=== PATIENT | female | born 1960 | race Caucasian/White ===

== ENCOUNTER 2017-01-25 22:47 | Emergency (ER) | payer BC ==
[2017-01-25] MEDS ORDERED: SODIUM CHLORIDE 0.9% 1,000 ML IV STA (23:28)
--- NOTE | 2017-01-25 23:37 | ED ---
Abdominal Pain HPI - General Chief Complaint: Abdominal Pain Stated Complaint: poss kidney stone Time Seen by Provider: 01/25/17 23:19 Source: patient, RN notes reviewed Mode of arrival: ambulatory Limitations: no limitations - History of Present Illness Initial Comments: 56-year-old female presents emergency Department chief complaint of left flank pain. Patient states that she didn't sudden onset of pain a few hours prior arrival. Patient states it did radiate to her lower abdomen. She has no history kidney stones which she states that she has had some family members describe the pain very similar. He states his pain has subsided some still an achy pain in her left flank. Patient denies any dysuria, hematuria, urinary frequency, diarrhea constipation. She's had no prior abdominal surgeries. She does admit to having some issues with her back in which she has been working through with her primary care physician and she is scheduled for an MRI. Patient denies fever, chills, chest pain or shortness of breath. - Related Data Home Medications Medication Instructions Recorded Confirmed Cyclobenzaprine [Flexeril] 5 mg PO TID PRN 01/25/17 01/25/17 Naproxen 500 mg PO BID 01/25/17 01/25/17 methylPREDNISolone Dose Pack See Taper PO DAILY 01/25/17 01/25/17 [Medrol Dose Pack] Previous Rx's Medication Instructions Recorded Hydrocodone/Acetaminophen [Mammoth 1 tab PO Q6HR PRN #20 tab 01/26/17 5-325] Ondansetron Odt [Zofran Odt] 4 mg PO Q8HR PRN #10 tab 01/26/17 Tamsulosin [Flomax] 0.4 mg PO DAILY #7 cap 01/26/17 Allergies Allergy/AdvReac Type Severity Reaction Status Date / Time No Known Allergies Allergy Verified 01/25/17 23:34 Review of Systems ROS Statement: Those systems with pertinent positive or pertinent negative responses have been documented in the HPI. ROS Other: All systems not noted in ROS Statement are negative. Past Medical History Past Medical History: No Reported History History of Any Multi-Drug Resistant Organisms: None Reported Past Surgical History: No Surgical Hx Reported Past Psychological History: No Psychological Hx Reported Smoking Status: Never smoker Past Alcohol Use History: Occasional Past Drug Use History: None Reported General Exam Limitations: no limitations General appearance: alert, in no apparent distress Head exam: Present: atraumatic, normocephalic, normal inspection Eye exam: Present: normal appearance, PERRL, EOMI. Absent: scleral icterus, conjunctival injection, periorbital swelling Respiratory exam: Present: normal lung sounds bilaterally. Absent: respiratory distress, wheezes, rales, rhonchi, stridor Cardiovascular Exam: Present: regular rate, normal rhythm, normal heart sounds. Absent: systolic murmur, diastolic murmur, rubs, gallop, clicks GI/Abdominal exam: Present: soft, tenderness (Mild left-sided), normal bowel sounds. Absent: distended, guarding, rebound, rigid Back exam: Absent: CVA tenderness (R), CVA tenderness (L) Neurological exam: Present: alert, oriented X3, CN II-XII intact Skin exam: Present: warm, dry, intact, normal color. Absent: rash Course Vital Signs 01/25/17 01/26/17 01/26/17 23:09 00:31 01:27 Temperature 97.5 F L Pulse Rate 91 67 66 Respiratory 16 18 18 Rate Blood Pressure 181/94 164/89 168/96 O2 Sat by Pulse 95 96 96 Oximetry Medical Decision Making - Medical Decision Making 56-year-old female presented emergency from for left flank pain. Patient's symptoms had improved prior arrival though she had some hematuria on her urinalysis. Patient has a 3 mm ureteral stone. Patient's pain is mild at this time. She'll be discharged with Flomax, pain medication and denies medication return parameters were discussed. - Lab Data Result diagrams: 01/25/17 23:54 01/25/17 23:54 Lab Results 01/25/17 01/25/17 01/25/17 Range/Units 23:54 23:54 23:54 WBC 10.2 (3.8-10.6) k/uL RBC 4.80 (3.80-5.40) m/uL Hgb 14.5 (11.4-16.0) gm/dL Hct 42.2 (34.0-46.0) % MCV 87.8 (80.0-100.0) fL MCH 30.2 (25.0-35.0) pg MCHC 34.4 (31.0-37.0) g/dL RDW 14.4 (11.5-15.5) % Plt Count 265 (150-450) k/uL Neutrophils % 65 % Lymphocytes % 23 % Monocytes % 9 % Eosinophils % 1 % Basophils % 0 % Neutrophils # 6.6 (1.3-7.7) k/uL Lymphocytes # 2.4 (1.0-4.8) k/uL Monocytes # 0.9 (0-1.0) k/uL Eosinophils # 0.1 (0-0.7) k/uL Basophils # 0.0 (0-0.2) k/uL Sodium 140 (137-145) mmol/L Potassium 3.9 (3.5-5.1) mmol/L Chloride 105 (98-107) mmol/L Carbon Dioxide 25 (22-30) mmol/L Anion Gap 10 mmol/L BUN 36 H (7-17) mg/dL Creatinine 0.80 (0.52-1.04) mg/dL Est GFR (MDRD) Af Amer >60 (>60 ml/min/1.73 sqM) Est GFR (MDRD) Non-Af >60 (>60 ml/min/1.73 sqM) Glucose 133 H (74-99) mg/dL Calcium 10.3 H (8.4-10.2) mg/dL Total Bilirubin 0.3 (0.2-1.3) mg/dL AST 19 (14-36) U/L ALT 28 (9-52) U/L Alkaline Phosphatase 145 H (38-126) U/L Total Protein 6.6 (6.3-8.2) g/dL Albumin 3.8 (3.5-5.0) g/dL Amylase 90 (30-110) U/L Lipase 339 H (23-300) U/L Urine Color Yellow Urine Appearance Clear (Clear) Urine pH 6.0 (5.0-8.0) Ur Specific [place] 1.020 (1.001-1.035) Urine Protein Negative (Negative) Urine Glucose (UA) Negative (Negative) Urine Ketones Negative (Negative) Urine Blood Moderate H (Negative) Urine Nitrite Negative (Negative) Urine Bilirubin Negative (Negative) Urine Urobilinogen <2.0 (<2.0) mg/dL Ur Leukocyte Esterase Small H (Negative) Urine RBC 153 H (0-5) /hpf Urine WBC 9 H (0-5) /hpf Ur Squamous Epith Cells <1 (0-4) /hpf Urine Mucus Rare H (None) /hpf Disposition Clinical Impression: Ureteral calculi, Left flank pain Disposition: HOME SELF-CARE Condition: Stable Instructions: Kidney Stones (ED) Additional Instructions: `Please return to the Emergency Department if symptoms worsen or any other concerns. Prescriptions: Hydrocodone/Acetaminophen [Mammoth 5-325] 1 tab PO Q6HR PRN #20 tab PRN Reason: Pain Ondansetron Odt [Zofran Odt] 4 mg PO Q8HR PRN #10 tab PRN Reason: Nausea Tamsulosin [Flomax] 0.4 mg PO DAILY #7 cap Referrals: Marquise Early DO [Primary Care Provider] - 1-2 days Time of Disposition: 01:42
[2017-01-26 00:07] LABS: Basophils % (A) 0 %; CH 30.1; CHCM 34.4; Eosinophils # (A) 0.1 k/uL (0-0.7); Eosinophils % (A) 1 %; HCT 42.2 % (34.0-46.0); HDW 2.73; HGB 14.5 gm/dL (11.4-16.0); Luc # (Auto) 0.16; Luc % (Auto) 2; Lymphocytes # (A) 2.4 k/uL (1.0-4.8); Lymphocytes % (A) 23 %; MCH 30.2 pg (25.0-35.0); MCHC 34.4 g/dL (31.0-37.0); MCV 87.8 fL (80.0-100.0); Mean Platelet Volume 7.9; Monocytes # (A) 0.9 k/uL (0-1.0); Monocytes % (A) 9 %; Neutrophils # (A) 6.6 k/uL (1.3-7.7); Neutrophils % (A) 65 %; RDW 14.4 % (11.5-15.5); WBC 10.2 k/uL (3.8-10.6); WBC (Perox) 10.04
[2017-01-26 00:12] LABS: Appearance,Urine Clear (Clear); Bilirubin,Urine Negative (Negative); Glucose,Urine (UA) Negative (Negative); Ketones,Urine Negative (Negative); Leukocyte Esterase,Urine Small (Negative); Mucus,Urine Rare /hpf; Nitrite,Urine Negative (Negative); Particle Count 1440; Protein,Urine Negative (Negative); RBC,Urine 153 /hpf (0-5); Squamous Epithelial Cell,Urine <1 /hpf (0-4); UA Billing (MACRO vs. MICRO) MICRO; Urobilinogen,Urine <2.0 mg/dL (<2.0); WBC,Urine 9 /hpf (0-5)
[2017-01-26 00:18] LABS: ALT 28 U/L (9-52); AST 19 U/L (14-36); Alkaline Phosphatase 145 U/L (38-126); Amylase 90 U/L (30-110); Anion Gap 10 mmol/L; Blood Urea Nitrogen 36 mg/dL (7-17); Calcium 10.3 mg/dL (8.4-10.2); Carbon Dioxide 25 mmol/L (22-30); Chloride 105 mmol/L (98-107); Glucose 133 mg/dL (74-99); Non-African American GFR(MDRD) >60 (>60 ml/min/1.73 sqM); Potassium 3.9 mmol/L (3.5-5.1); Sodium 140 mmol/L (137-145); Total Bilirubin 0.3 mg/dL (0.2-1.3); Total Protein 6.6 g/dL (6.3-8.2)
--- NOTE | 2017-01-26 00:25 | XR ---
EXAMINATION TYPE: XR KUB DATE OF EXAM: 01/26/2017 COMPARISON: NONE HISTORY: Left flank pain TECHNIQUE: 2 views FINDINGS: There is no sign of intestinal obstruction or pneumoperitoneum. Fecal pattern is normal. Mary ng bases are clear. There are no pathologic calcifications over the kidneys. IMPRESSION: Nonacute abdomen.
[2017-01-26 00:32] VITALS: RESP 18
--- NOTE | 2017-01-26 01:08 | CT ---
EXAMINATION TYPE: CT abdomen pelvis wo con DATE OF EXAM: 01/26/2017 COMPARISON: NONE HISTORY: left flank pain CT DLP: 385.20 mGycm Automated exposure control for dose reduction was used. TECHNIQUE: Helical acquisition of images was performed from the lung bases through the pelvis. FINDINGS: Lung bases are clear of consolidation. There is no pleural effusion. There is minimal subsegmental at electasis at the right lung base. There are multiple cysts in the liver that measure up to 4 cm. Bile ducts are not dilated. Spleen jazmine ears normal. There is no pancreatic mass. Gallbladder somewhat contracted. There is no adrenal mass. Kidneys have normal size. There is mild left-sided hydronephrosis and hydro ureter. There is a 3 mm calculus probably in the distal left ureter next to the left acetabulum on im age 89. I see no intestinal wall thickening. There are no dilated loops. Appendix is not seen. There is no si gn of appendicitis. Bladder distends smoothly. There is no sign of a pelvic mass. Uterus is anteverte d. Bony structures are intact. There is no evidence of a calculus within the kidneys. IMPRESSION: THERE IS A TINY CALCULUS OBSTRUCTING THE LEFT UPPER COLLECTING SYSTEM IN THE LOWER LEFT URETER. MILD LEFT-SIDED HYDRONEPHROSIS.
[2017-01-26] MEDS ORDERED: HYDROcodone/APAP 5-325MG 1 EACH TAB PO STA (01:40)
[2017-01-26] MEDS ORDERED: KETOROLAC 30 MG/ML 1 ML VIAL IVP STA (01:40)
[2017-01-26] MEDS ORDERED: TAMSULOSIN 0.4 MG CAP.ER.24H PO STA (01:40)
[2017-01-26 02:11] VITALS: BP 182/89; PULSE 65; TEMP 97.2
== END 2017-01-26 02:10 | disposition home or self-care (01) ==
LOC: EC 22:47
DX: N20.1 Calculus of ureter (principal); Z79.1 Long term (current) use of non-steroidal anti-inflammatories (NSAID); Z79.899 Other long term (current) drug therapy
CPT/HCPCS: 36415; 80053; 82150; 83690; 85025; 81001; 74000; 74176; 99284; 96374; 96361; J1885

== ENCOUNTER → 2017-02-19 | Outpatient (CLI) | payer BC ==
--- NOTE | 2017-02-19 07:56 | MR ---
MR lumbar spine wo con Low back pain Multiplanar, multiecho imaging of the lumbar spine was obtained without contrast on a 3 Ester magnet. REFERENCE:None. FINDINGS: There is a 7.5 mm cystic lesion in the upper pole of the left kidney. There is a second 7. 5 mm cystic lesion mid polar region of the left kidney. Paraspinal soft tissues are otherwise normal. Vertebral body height and alignment are maintained. Cord signal is maintained. The conus ends above the level of the first slice. At T12-L1, no definite abnormality is seen. At L1-2, there is mild disc space loss. The intervertebral foramina are well maintained. There is min imal hypertrophic change in the facets. At L2-3, there is mild disc space loss. Intervertebral foramina are well maintained. There is a diffu se disc displacement mildly effacing the thecal sac. There is mild hypertrophic change in the facets. At L3-4, there is mild disc space loss. Intervertebral foramina are well maintained. There is a diffu se disc displacement. There is mild capsulitis and hypertrophic changes in the facets. There is minim al trefoiling of the thecal sac. At L4-5, there is mild capsulitis and hypertrophic change in the facets. At L5-S1, there is a tiny annular rent without protrusion. Intervertebral foramina are well maintaine d. This hypertrophic changes in the facets. IMPRESSION: 1. DIFFUSE DEGENERATIVE DISC DISEASE AND FACET ARTHROPATHY. 2. NO SIGNIFICANT COMPRESSIVE DISCOPATHY OR NEURAL COMPRESSION. 3. SMALL ANNULAR RENT, L5-S1, WITHOUT PROTRUSION.
== END ==
LOC: RADMRIMAIN 07:13
PROVIDERS: ATTEND Physician Assistant
DX: M51.36 Other intervertebral disc degeneration, lumbar region (principal); M46.86 Other specified inflammatory spondylopathies, lumbar region
CPT/HCPCS: 72148

== ENCOUNTER 2017-06-21 10:53 | Emergency (ER) | payer BC ==
[2017-06-21 11:06] VITALS: RESP 18; TEMP 98.6
--- NOTE | 2017-06-21 11:49 | ED ---
General Adult HPI - General Chief complaint: Recheck/Abnormal Lab/Rx Stated complaint: High BP Time Seen by Provider: 06/21/17 11:13 Source: patient, RN notes reviewed, old records reviewed Mode of arrival: ambulatory Limitations: no limitations - History of Present Illness Initial comments: This is a 57-year-old female to the ER for evaluation. She was essay for evaluation regards to anxiety elevated blood pressure multiple nonspecific symptoms. Patient comes in from her job she was noted to have high blood pressure today at work. Patient denies any current chest pain no shortness of breath. syncope. She states recently she is having some difficulty with memory but does admit to increased stress decreased attention. No drugs rel call. Patient takes no medications. Patient was at her OB visit last week and her blood pressure was noted to be high, patient states her blood pressure is higher today - Related Data Home Medications Medication Instructions Recorded Confirmed No Known Home Medications [No 06/21/17 06/21/17 Known Home Medications] Allergies Allergy/AdvReac Type Severity Reaction Status Date / Time No Known Allergies Allergy Verified 06/21/17 11:11 Review of Systems ROS Statement: Those systems with pertinent positive or pertinent negative responses have been documented in the HPI. ROS Other: All systems not noted in ROS Statement are negative. Past Medical History Past Medical History: No Reported History History of Any Multi-Drug Resistant Organisms: None Reported Past Surgical History: No Surgical Hx Reported Past Psychological History: No Psychological Hx Reported Smoking Status: Never smoker Past Alcohol Use History: Occasional Past Drug Use History: None Reported General Exam Limitations: no limitations General appearance: alert, in no apparent distress Head exam: Present: atraumatic, normocephalic, normal inspection Eye exam: Present: normal appearance, PERRL, EOMI. Absent: scleral icterus, conjunctival injection, periorbital swelling ENT exam: Present: normal exam, mucous membranes moist Neck exam: Present: normal inspection. Absent: tenderness, meningismus, lymphadenopathy Respiratory exam: Present: normal lung sounds bilaterally. Absent: respiratory distress, wheezes, rales, rhonchi, stridor Cardiovascular Exam: Present: regular rate, normal rhythm, normal heart sounds. Absent: systolic murmur, diastolic murmur, rubs, gallop, clicks GI/Abdominal exam: Present: soft, normal bowel sounds. Absent: distended, tenderness, guarding, rebound, rigid Extremities exam: Present: normal inspection, full ROM, normal capillary refill. Absent: tenderness, pedal edema, joint swelling, calf tenderness Back exam: Present: normal inspection Neurological exam: Present: alert, oriented X3, CN II-XII intact Psychiatric exam: Present: normal affect, normal mood Skin exam: Present: warm, dry, intact, normal color. Absent: rash Course Vital Signs 06/21/17 06/21/17 11:02 12:25 Temperature 98.6 F Pulse Rate 80 75 Respiratory 18 18 Rate Blood Pressure 182/100 162/105 O2 Sat by Pulse 99 97 Oximetry - Reevaluation(s) Reevaluation #1: 06/21/17 11:49 Blood pressures improved, spoke with patient at length regarding control blood pressure EKG Findings - EKG Comments: EKG Findings:: EKG shows normal sinus rhythm rate of 72, GA 144, QRS 78, QTC 429 Medical Decision Making - Medical Decision Making 57 female the ER for evaluation of anxiety, pO2 diagnosis of hypertension. Patient was placed on low-dose hypertensive medication and can be discharged - Lab Data Result diagrams: 06/21/17 12:03 Lab Results 06/21/17 Range/Units 12:03 WBC 4.3 (3.8-10.6) k/uL RBC 4.71 (3.80-5.40) m/uL Hgb 14.1 (11.4-16.0) gm/dL Hct 39.8 (34.0-46.0) % MCV 84.4 (80.0-100.0) fL MCH 30.0 (25.0-35.0) pg MCHC 35.6 (31.0-37.0) g/dL RDW 13.0 (11.5-15.5) % Plt Count 245 (150-450) k/uL Neutrophils % 50 % Lymphocytes % 36 % Monocytes % 9 % Eosinophils % 2 % Basophils % 0 % Neutrophils # 2.1 (1.3-7.7) k/uL Lymphocytes # 1.5 (1.0-4.8) k/uL Monocytes # 0.4 (0-1.0) k/uL Eosinophils # 0.1 (0-0.7) k/uL Basophils # 0.0 (0-0.2) k/uL Disposition Clinical Impression: Hypertension Disposition: HOME SELF-CARE Condition: Good Instructions: Hypertension (ED) Referrals: Marquise Early DO [Primary Care Provider] - 1-2 days
[2017-06-21 12:19] LABS: Basophils % (A) 0 %; Eosinophils # (A) 0.1 k/uL (0-0.7); Eosinophils % (A) 2 %; HCT 39.8 % (34.0-46.0); HGB 14.1 gm/dL (11.4-16.0); Lymphocytes # (A) 1.5 k/uL (1.0-4.8); Lymphocytes % (A) 36 %; MCHC 35.6 g/dL (31.0-37.0); MCV 84.4 fL (80.0-100.0); Mean Platelet Volume 7.8; Monocytes # (A) 0.4 k/uL (0-1.0); Monocytes % (A) 9 %; Neutrophils # (A) 2.1 k/uL (1.3-7.7); Neutrophils % (A) 50 %; Platelet Count 245 k/uL (150-450); RBC 4.71 m/uL (3.80-5.40); WBC 4.3 k/uL (3.8-10.6)
[2017-06-21 12:26] LABS: ALT 33 U/L (9-52); AST 25 U/L (14-36); Alkaline Phosphatase 118 U/L (38-126); Anion Gap 10 mmol/L; Blood Urea Nitrogen 15 mg/dL (7-17); Carbon Dioxide 25 mmol/L (22-30); Chloride 108 mmol/L (98-107); Glucose 98 mg/dL (74-99); Magnesium 2.1 mg/dL (1.6-2.3); Phosphorus 3.5 mg/dL (2.5-4.5); Potassium 4.2 mmol/L (3.5-5.1); Sodium 143 mmol/L (137-145); Total Bilirubin 0.3 mg/dL (0.2-1.3); Total Protein 6.8 g/dL (6.3-8.2)
[2017-06-21 12:37] LABS: Creatine Kinase 90 U/L (30-135)
[2017-06-21 12:50] LABS: Creatine Kinase MB 0.7 ng/mL (0.0-2.4); Troponin I <0.012 ng/mL (0.000-0.034)
[2017-06-21 12:50] LABS: Appearance,Urine Clear (Clear); Bilirubin,Urine Negative (Negative); Blood,Urine Negative (Negative); Color,Urine Yellow; Glucose,Urine (UA) Negative (Negative); Ketones,Urine Negative (Negative); Leukocyte Esterase,Urine Trace (Negative); Mucus,Urine Rare /hpf; Nitrite,Urine Negative (Negative); Protein,Urine Negative (Negative); RBC,Urine 2 /hpf (0-5); Specific Gravity,Urine 1.016 (1.001-1.035); Squamous Epithelial Cell,Urine <1 /hpf (0-4); Urobilinogen,Urine <2.0 mg/dL (<2.0); WBC,Urine 2 /hpf (0-5)
[2017-06-21 12:57] VITALS: BP 156/98; PULSE 72
== END 2017-06-21 13:13 | disposition home or self-care (01) ==
LOC: EC 10:53
DX: I10 Essential (primary) hypertension (principal)
CPT/HCPCS: 36415; 80053; 81001; 82550; 82553; 83735; 84100; 84443; 84484; 85025; 93005; 99284

== ENCOUNTER → 2018-05-08 | Outpatient (CLI) | payer BC ==
--- NOTE | 2018-05-10 12:08 | MM ---
Reason for exam: screening (asymptomatic). Last mammogram was performed 3 years ago. History: Patient is postmenopausal. Family history of premenopausal breast cancer in grandmother at age 42 and breast cancer in aunt at age 63. Took hormonal contraceptives for 15 years beginning at age 21. Physical Findings: A clinical breast exam by your physician is recommended on an annual basis and results should be correlated with mammographic findings. MG Screening Mammo w CAD Bilateral CC and MLO view(s) were taken. Prior study comparison: May 09, 2015, bilateral MG screening mammo w CAD. March 18, 2014, bilateral MG screening mammo w CAD. There are scattered fibroglandular densities. There is chronic nodularity in the left breast. No significant changes when compared with prior studies. ASSESSMENT: Benign, BI-RAD 2 RECOMMENDATION: Routine screening mammogram of both breasts in 1 year.
== END | disposition home or self-care (01) ==
LOC: RADMAMWWP 15:34
PROVIDERS: ATTEND Obstetrics & Gynecology
DX: Z12.31 Encounter for screening mammogram for malignant neoplasm of breast (principal)
CPT/HCPCS: 77067

== ENCOUNTER 2019-02-02 09:55 | Day surgery (SDC) | payer BC ==
[2019-01-30 14:52] VITALS: BMI 25.0
[~2019-02-02 09:55] MED LIST: LACTATED RINGERS 1,000 ML IV SCH
[2019-02-02 10:22] VITALS: RESP 16; TEMP 98.1
[2019-02-02] MEDS ORDERED: LIDOCAINE 1% 20 ML VIAL (10MG/ML) FOR IV START INTRADERMA ONE (10:26)
[2019-02-02] MEDS ORDERED: MIDAZOLAM 2 MG/2 ML VIAL ONE (10:43)
[2019-02-02] MEDS ORDERED: fentaNYL (PF) 50 MCG/ML 2 ML AMP ONE (10:43)
[2019-02-02] MEDS ORDERED: PROPOFOL 10 MG/ML 20 ML VIAL IV ONE (10:43)
--- NOTE | 2019-02-02 10:58 | P.PCN ---
Date of Procedure: 02/02/19 Procedure(s) Performed: BRIEF HISTORY: Patient is a 58-year-old pleasant white female scheduled for an elective colonoscopy as a part of screening for colorectal neoplasia. PROCEDURE PERFORMED: Colonoscopy. PREOPERATIVE DIAGNOSIS: Screening for colon cancer. IV sedation per Anesthesia. PROCEDURE: After informed consent was obtained, the patient, was brought into the endoscopy unit. IV sedation was administered by Anesthesia under continuous monitoring. Digital rectal examination was normal. Initially the Olympus CF-160 flexible video colonoscope was then inserted in the rectum, gradually advanced into the cecum without any difficulty. Careful examination was performed as the scope was gradually being withdrawn. Ileocecal valve and the appendiceal orifice were visualized and appeared normal. Prep was excellent. Mucosa of the cecum, ascending colon, transverse colon, descending colon, sigmoid colon, and rectum appeared normal. Retroflexion was performed in the rectum and no lesions were seen. The patient tolerated the procedure well. IMPRESSION: Normal-appearing colon from rectum to cecum with no evidence of colorectal neoplasia. RECOMMENDATIONS: Findings of this examination were discussed with the patient as well as a family. She was advised to have a repeat screening colonoscopy in 10 years.
[2019-02-02 11:18] VITALS: BP 132/92; PULSE 87
== END 2019-02-02 11:35 | disposition home or self-care (01) ==
LOC: ORWHC2ENDO 09:55
PROVIDERS: ATTEND Internal Medicine Gastroenterology
DX: Z12.11 Encounter for screening for malignant neoplasm of colon (principal); G24.3 Spasmodic torticollis; Z80.0 Family history of malignant neoplasm of digestive organs
CPT/HCPCS: J2250; J3010; J2704; G0105

== ENCOUNTER → 2020-01-29 | Outpatient (CLI) | payer BC | END | disposition home or self-care (01) | LOC: LABWHC1 16:47 | PROVIDERS: ATTEND Family Medicine | DX: Z20.828 Contact with and (suspected) exposure to other viral communicable diseases (principal) | CPT/HCPCS: U0003; C9803 ==

== ENCOUNTER → 2020-02-06 | Outpatient (CLI) | payer BC | END | disposition home or self-care (01) | LOC: LABWHC1 12:39 | PROVIDERS: ATTEND Family Medicine | DX: Z20.828 Contact with and (suspected) exposure to other viral communicable diseases (principal) | CPT/HCPCS: U0003; C9803 ==

== ENCOUNTER 2020-05-27 09:19 | Emergency (ER) | payer BC ==
[2020-05-27 09:25] VITALS: BP 105/79; PULSE 73; RESP 18; TEMP 98.1
--- NOTE | 2020-05-27 10:01 | XR ---
EXAMINATION TYPE: XR wrist complete LT, XR hand complete LT DATE OF EXAM: 05/27/2020 CLINICAL HISTORY: Pain from fall. TECHNIQUE: Frontal, lateral and oblique images of the left wrist and hand are obtained. 4 view scap hoid view is performed. COMPARISON: None FINDINGS: There is acute displaced spiral type fracture mid to distal diaphysis fifth metacarpal with approximately 3 mm radial displacement distal fracture fragment and slight 3 mm impaction. There is additional comminuted nondisplaced fracture through the distal metadiaphysis fourth metacarpal. Mild to moderate narrowing throughout the PIP and DIP joints of the phalanges. No additional acute fracture or dislocation in the carpal bones. Overlying soft tissue is unremarkabl e. IMPRESSION: As above. (Initial encounter closed type posttraumatic fracture)
--- NOTE | 2020-05-27 10:15 | ED ---
Upper Extremity HPI - General Chief Complaint: Extremity Injury, Upper Stated Complaint: fall/hand injury Time Seen by Provider: 05/27/20 09:33 Source: patient Mode of arrival: ambulatory Limitations: no limitations - History of Present Illness Initial Comments: 60-year-old feel presenting today for chief complaint of left hand pain. Patient states she has left lateral hand pain after fall. She denies wrist pain elbow pain shoulder pain denies headache injury or neck pain. Patient states when she noticed some bruising and continued pain today she thought something might be broken presented to the ER immediately if he is still negative she denies any weakness sensation deficits of the digits. - Related Data Home Medications Medication Instructions Recorded Confirmed Acetaminophen Tab [Tylenol Tab] 500 mg PO Q6HR PRN 05/27/20 05/27/20 Ibuprofen [Motrin Ib] 400 mg PO Q8H PRN 05/27/20 05/27/20 Losartan Potassium 100 mg PO HS 05/27/20 05/27/20 clonazePAM [KlonoPIN] 0.5 mg PO BID 05/27/20 05/27/20 Allergies Allergy/AdvReac Type Severity Reaction Status Date / Time No Known Allergies Allergy Verified 05/27/20 10:18 Review of Systems ROS Statement: Those systems with pertinent positive or pertinent negative responses have been documented in the HPI. ROS Other: All systems not noted in ROS Statement are negative. Past Medical History Past Medical History: No Reported History Additional Past Medical History / Comment(s): CERVICAL DYSTONIA-RECEIVES BOTOX INJECTIONS FOR MUSCLE SPASMS ., FRAGMENT OF BONE LEFT LOWER BACK- CAUSES SPASMS ALSO. History of Any Multi-Drug Resistant Organisms: None Reported Past Surgical History: No Surgical Hx Reported Additional Past Anesthesia/Blood Transfusion Reaction / Comment(s): HX OF EPIDURAL WITH CHILDBIRTH- NUMB ALL OVER, CAUSES ARMS AND LEGS TO MOVE (FLAYING) , HAD TO HAVE BLOOD PATCH. Past Psychological History: No Psychological Hx Reported Smoking Status: Never smoker Past Alcohol Use History: Occasional Past Drug Use History: None Reported - Past Family History Father Family Medical History: Cancer Additional Family Medical History / Comment(s): COLON CANCER Daughter(s) Family Medical History: Cancer Additional Family Medical History / Comment(s): THYROID CANCER General Exam - General Exam Comments Initial Comments: General: The patient is awake and alert, in no distress, and does not appear acutely ill. Eye: Pupils are equal, round and reactive to light, extra-ocular movements are intact. No nystagmus. There is normal conjunctiva bilaterally. No signs of icterus. Ears, nose, mouth and throat: There are moist mucous membranes and no oral lesions. Musculoskeletal: Some bruising near metacarpals 4 and 5. Both on the ventral and dorsal aspect of the left hand Normal ROM, at the DIP and PIP joints. Strength 5/5 of the DIP and PIP joints.Refuses to full range at the 4/5 mcp joints but movement is appreciated. Sensation intact proximal and distal to injury stire. Radial pulses equal bilaterally 2+. Neurological: A&O x 3. CN II-XII intact, There are no obvious motor or sensory deficits. Coordination appears grossly intact. Speech is normal. Skin: Skin is warm and dry and no rashes or lesions are noted. Psychiatric: Cooperative, appropriate mood & affect, normal judgment. Limitations: no limitations Course Vital Signs 05/27/20 09:20 Temperature 98.1 F Pulse Rate 73 Respiratory 18 Rate Blood Pressure 105/79 O2 Sat by Pulse 97 Oximetry Medical Decision Making - Medical Decision Making 60-year-old female presenting for left hand pain there is metacarpal fractures with significant displacement of the fifth. Orthopedic on-call was consulted AILYN Samuel recommended discharge after splinting. Patient is neurovascularly intact both prior to DrPooja splinting she is full sensation proximal and distal to area of injury she is able to ady at the digits affected with no obvious tendon injury. Capillary refill less than 3 seconds. Patient placed in ulnar gutter and discharged with orthopedic f/u. patietn discharged appearing well. Dr Benavides agreeable to care plan. Disposition Clinical Impression: Closed fracture of 5th metacarpal, Closed fracture of 4th metacarpal Disposition: HOME SELF-CARE Condition: Good Instructions (If sedation given, give patient instructions): Hand Fracture (ED) Additional Instructions: Please use medication as discussed. Please follow-up with orthopedic surgery in next 24-48 hours, keep splint in place. Please return to emergency room if the symptoms increase or worsen or for any other concerns. Is patient prescribed a controlled substance at d/c from ED?: No Referrals: Roosevelt Dozier DO [Primary Care Provider] - 1-2 days Cheng Smith DO [Doctor of Osteopathic Medicine] - 1-2 days Time of Disposition: 10:15
== END 2020-05-27 10:55 | disposition home or self-care (01) ==
LOC: EC 09:19
DX: S62.397A Other fracture of fifth metacarpal bone, left hand, initial encounter for closed fracture (principal); W01.0XXA Fall on same level from slipping, tripping and stumbling without subsequent striking against object, initial encounter; Y93.89 Activity, other specified; Y92.002 Bathroom of unspecified non-institutional (private) residence as the place of occurrence of the external cause
CPT/HCPCS: 29125; 99283

== ENCOUNTER → 2022-03-12 | Outpatient (CLI) | payer OTHER ==
--- NOTE | 2022-03-15 10:38 | MM ---
Reason for Exam: Screening (asymptomatic). Last mammogram was performed 3 year(s) and 10 month(s) ago. Patient History: Menarche at age 12. First Full-Term at age 30. Postmenopausal. Currently using Estrogen, starting at age 59. Hormonal Contraceptives, from age 21 until age 36. Maternal grandmother had breast cancer, age 42. Maternal aunt had breast cancer, age 63. Risk Values: Lilian 5 year model risk: 1.8%. NCI Lifetime model risk: 8.9%. Prior Study Comparison: 06/12/2007 Bilateral Diagnostic Mammogram, [facility]. 03/18/2014 Bilateral Screening Mammogram, [facility]. 05/09/2015 Bilateral Screening Mammogram, [facility]. 05/08/2018 Bilateral Screening Mammogram, [facility]. Tissue Density: There are scattered fibroglandular densities. Findings: Analyzed By CAD. There is no suspicious group of microcalcifications or new suspicious mass in either breast. Overall Assessment: Negative, BI-RAD 1 Management: Screening Mammogram of both breasts in 1 year. A clinical breast exam by your physician is recommended on an annual basis and results should be correlated with mammographic findings. [facility] will attempt to contact patient to return for supplemental views and ultrasound if indicated. Electronically signed and approved by: Billy Johnson DO
== END | disposition home or self-care (01) ==
LOC: RADMAMWWP 10:23
PROVIDERS: ATTEND Family Medicine
DX: Z12.31 Encounter for screening mammogram for malignant neoplasm of breast (principal); Z78.0 Asymptomatic menopausal state; Z80.3 Family history of malignant neoplasm of breast
CPT/HCPCS: 77063; 77067